=== PATIENT | female | born 1985 | race American Indian/Alaskan Native ===

== ENCOUNTER 2019-10-14 09:07 | Emergency (ER) | payer MEDICAID ==
[~2019-10-14] VITALS: Ht 157.5 cm; Wt 77.3 kg
[2019-10-14 10:06] LABS: BASOPHILS % (AUTO) 0.7 % (0.0-2.0); EOSINOPHILS % (AUTO) 0.7 % (1.0-6.0); HEMATOCRIT 35.2 % (36-46); HEMOGLOBIN 11.1 g/dL (12.0-16.0); LYMPHOCYTES # (AUTO) 1.7 K/uL (1.0-4.8); LYMPHOCYTES % (AUTO) 22.7 % (22.0-44.0); MEAN CORPUSCULAR HEMOGLOBIN 23.2 pg (26.0-34.0); MEAN CORPUSCULAR HGB CONC 31.5 G/dL (31.0-37.0); MEAN CORPUSCULAR VOLUME 74 fL (80-100); MONOCYTES # (AUTO) 0.6 K/uL (0.1-1.0); MONOCYTES % (AUTO) 8.1 % (2.0-9.0); NEUTROPHILS # (AUTO) 5.1 K/uL (1.8-7.7); NEUTROPHILS % (AUTO) 67.8 % (40.0-70.0); PLATELET COUNT (AUTO) 387 K/uL (150-450); RED BLOOD CELL COUNT(AUTO) 4.78 MIL/uL (4.00-5.20); RED CELL DISTRIBUTION WIDTH 18.9 % (11.5-14.5)
[2019-10-14 10:14] LABS: ANION GAP 6 mmol/L (8-16); CALCIUM, TOTAL 8.8 mg/dL (8.8-10.5); CARBON DIOXIDE 31 mmol/L (22-29); CHLORIDE 101 mmol/L (98-107); CREATININE 0.94 mg/dL (0.60-1.30); GLOMERULAR FILTR. RATE CALC > 60 mL/min (>60); GLUCOSE,RANDOM 106 mg/dL (70-110); POTASSIUM 3.9 mmol/L (3.5-5.1); SODIUM SERUM 138 mmol/L (136-145); UREA NITROGEN, BLOOD 10 mg/dL (7-18)
[2019-10-14 10:22] LABS: ALANINE AMINOTRANSFERASE 35 U/L (12-78); ALBUMIN 3.7 g/dL (3.4-5.0); ALKALINE PHOSPHATASE 58 U/L (46-116); ASPARTATE AMINOTRANSFERASE 55 U/L (15-37); BILIRUBIN,TOTAL 0.7 mg/dL (0.1-1.0); TOTAL PROTEIN, SERUM 8.1 g/dL (6.4-8.2)
[2019-10-14] MEDS ORDERED: LORazepam 1 MG TABLET PO ONE (10:30)
[2019-10-14 11:30] VITALS: BP 122/77
== END 2019-10-14 11:30 | disposition home or self-care (01) ==
LOC: EMS 09:07
DX: F41.9 Anxiety disorder, unspecified (principal); F17.210 Nicotine dependence, cigarettes, uncomplicated
CPT/HCPCS: 36415; 80053; 85025; 99285; G0480